=== PATIENT | female | born 2005 | race Two or more races ===

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

== ENCOUNTER 2025-04-04 12:36 | Emergency (ER) | payer OTHER ==
[~2025-04-04] VITALS: Ht 152.4 cm; Wt 45.0 kg
[~2025-04-04 12:36] MED LIST changes: +GUAIFDM PO; +IBUP-45 PO; +ONDA-104 PO
[2025-04-04 12:46] VITALS: BP 101/79; PULSE 88; RESP 18; TEMP 98.2; O2SAT 98
[2025-04-04] MEDS: SULFAMETHOX/TRIMETH DS 800-160 MG/TABLET PO ONE (13:15)
[2025-04-04] MEDS: CEPHALEXIN MONOHYDRATE 500 MG CAPSULE PO ONE (13:15)
[2025-04-04] MEDS ORDERED: SULF1TAB41 PO (13:29)
[2025-04-04] MEDS ORDERED: CEPH-558 PO (13:29)
== END 2025-04-04 13:36 | disposition home or self-care (01) ==
LOC: EMS 12:37
DX: L02.213 Cutaneous abscess of chest wall (principal); W57.XXXA Bitten or stung by nonvenomous insect and other nonvenomous arthropods, initial encounter; Y93.89 Activity, other specified; Y92.89 Other specified places as the place of occurrence of the external cause; Y99.8 Other external cause status
CPT/HCPCS: 10060; 10061; 99283; 99284

== ENCOUNTER 2025-06-21 15:18 | Emergency (ER) | payer OTHER ==
[~2025-06-21] VITALS: Ht 152.4 cm; Wt 45.5 kg
[~2025-06-21 15:18] MED LIST changes: +CEPH-558 PO; +SULF1TAB41 PO
[2025-06-21 16:16] VITALS: BP 114/68; PULSE 72; RESP 18; TEMP 98.1; O2SAT 100
[2025-06-21] MEDS: ACETAMINOPHEN 500 MG TABLET PO ONE (16:24)
== END 2025-06-21 16:52 | disposition home or self-care (01) ==
LOC: EMS 15:18
DX: G44.309 Post-traumatic headache, unspecified, not intractable (principal); X50.1XXA Overexertion from prolonged static or awkward postures, initial encounter; W22.09XA Striking against other stationary object, initial encounter
CPT/HCPCS: 99282; 99283